=== PATIENT | male | born 1985 | race Caucasian/White ===

== ENCOUNTER 2020-03-21 10:41 | Outpatient (CLI) | payer BC, SELFPAY ==
[2020-03-21 11:19] LABS: Basophils Percent Auto 0.5 % (0.2-1.2); Eosinophils Absolute Auto 0.2 K/mm3 (0-0.3); Eosinophils Percent Auto 2.5 % (0-4.4); Hematocrit 43.8 % (42.0-52.0); Hemoglobin 14.7 g/dL (14.0-18.0); Immature Granulocyte Absolute 0.06 K/mm3 (0.00-0.031); Immature Granulocyte Percent A 0.8 % (0-0.5); Lymphocytes Absolute Auto 2.41 K/mm3 (0.9-3.2); Lymphocytes Percent Auto 32.1 % (18.3-44.2); Mean Corpuscular HGB Conc 33.6 g/dl (32-36); Mean Corpuscular Hemoglobin 29.6 pg (26-34); Mean Corpuscular Volume 88.3 fl (80-100); Monocytes Absolute Auto 0.6 K/mm3 (0.1-0.6); Monocytes Percent Auto 7.9 % (2.6-8.5); Neutrophils Absolute Auto 4.2 K/mm3 (1.3-6.7); Neutrophils Percent Auto 56.2 % (45.5-73.1); Platelet Count Result 304 k/mm3 (150-375); Red Blood Count 4.96 M/mm3 (4.6-6.20); Red Cell Distribution Width 12.5 % (11.5-14.5); White Blood Count 7.5 K/mm3 (4.5-10.0)
[2020-03-21 11:34] LABS: Alanine Aminotransferase 233 U/L (4-50); Albumin Level 4.6 g/dL (3.5-5.1); Alkaline Phosphatase 98 U/L (38-126); Anion Gap 8 mmol/L (8-16); Aspartate Amino Transferase 84 U/L (17-59); Bilirubin,Total 0.4 mg/dL (0.2-1.3); Blood Urea Nitrogen 13 mg/dL (9-20); Calcium 9.2 mg/dL (8.4-10.2); Carbon Dioxide 30 mmol/L (22-30); Chloride 102 mmol/L (98-107); Cholesterol 262 mg/dL (0-200); Estimated Glomerular Filt Rate > 60; Glucose 98 mg/dL (75-110); HDL Direct 48 mg/dL; Potassium 4.3 mmol/L (3.4-5.0); Sodium 140 mmol/L (137-145); Triglycerides 143 mg/dL (<150)
[2020-03-21 11:46] LABS: LDL Cholesterol Direct 170 mg/dL
== END 2020-03-21 10:42 | disposition home or self-care (01) ==
PROVIDERS: PCP Internal Medicine; Visit Provider Nurse Practitioner
DX: Z13.29 Encounter for screening for other suspected endocrine disorder (principal); Z13.220 Encounter for screening for lipoid disorders
CPT/HCPCS: 36415; 80053; 80061; 85025

== ENCOUNTER 2020-07-25 17:50 | Outpatient (CLI) | payer BC, SELFPAY | END 2020-07-25 17:51 | disposition home or self-care (01) | LOC: ANHCOVIDVC 17:50 | PROVIDERS: PCP Internal Medicine | DX: Z23 Encounter for immunization (principal) | CPT/HCPCS: 0001A; 91300 ==

== ENCOUNTER 2020-08-15 17:44 | Outpatient (CLI) | payer BC, SELFPAY | END 2020-08-15 17:45 | disposition home or self-care (01) | LOC: ANHCOVIDVC 17:44 | PROVIDERS: PCP Internal Medicine | DX: Z23 Encounter for immunization (principal) | CPT/HCPCS: 0002A; 91300 ==

== ENCOUNTER → 2020-09-26 06:34 | Outpatient (CLI) | payer BC, SELFPAY ==
[2020-09-26 17:04] LABS: SARS-CoV-2 RNA PCR Negative
== END ==
PROVIDERS: PCP Internal Medicine; Visit Provider Clinical Nurse Specialist
DX: Z20.822 Contact with and (suspected) exposure to COVID-19 (principal); R09.89 Other specified symptoms and signs involving the circulatory and respiratory systems
CPT/HCPCS: C9803; U0003; U0005

== ENCOUNTER 2020-10-27 17:18 | Emergency (ER) | payer BC, SELFPAY ==
--- NOTE | 2020-10-27 17:24 | ED.BACK ---
HPI - Back Pain/Injury General Chief Complaint: Back Pain/Injury Stated Complaint: lower right back pain Time Seen by Provider: 10/27/20 17:22 Source: patient and RN notes reviewed Mode of arrival: ambulatory History of Present Illness HPI Narrative: This is a 35-year-old male that presented to urgent care with complaints of constant lower back pain. Patient does have a history of L4-L5 fusion back in 2006. According to patient he woke up this morning and found it difficult to stand the patient requires a wheeled walker to perform ADLs in the home due to weakness/debility. The patient is not able to perform ADLs using a cane. Functional mobility deficit will be sufficiently resolved by using a walker. The patient is able to safely use the walker and agree to use the walker for treatment with the help of pain in his right lower back. Patient denies any trauma or lifting anything heavy. He notes on occasion he has a flareup and usually he can take ibuprofen in his symptoms are resolved. Patient notes this time ibuprofen did not relieve his low back pain. Patient denies any incontinence or urinary continence, weakness or falls. Patient straight leg test and slump test positive. Patient will need to follow-up with his primary care physician for further diagnostic test such as a CT MD elicited complaint: back pain Related Data Allergies Allergy/AdvReac Type Severity Reaction Status Date / Time No Known Allergies Allergy Verified 03/20/20 15:10 Review of Systems Review of Systems: Narrative: A 14 organ system Review of Systems was performed and pertinent positives included in the HPI, otherwise remaining ROS is negative. PMFSH Past Medical History Medical History Hyperlipidemia Transaminitis Surgical History Surgical History History of back surgery L4, L5 2006 Family History Family History Father Mixed hyperlipidemia Grandparent Malignant neoplasm of prostate Breast cancer Social History Social History Smoking status: Never smoker Alcohol intake: never Gender identity (if verbalized by the patient): Male Exam Narrative: Exam Narrative: GENERAL: This is a well-nourished, well-developed patient, in no apparent distress. HEAD: normocephalic, atraumatic. EYES: PERRL. Sclera clear/white. Vision is grossly intact. EARS: External ears normal, auditory canals clear and without drainage, TMs normal without perforation. Hearing grossly intact. NOSE: External nose normal with no obvious nasal discharge, nares without redness, no rhinorrhea. THROAT: Mucous membranes moist, posterior pharynx clear. NECK: Neck supple, non-tender without lymphadenopathy, masses or thyromegaly. CARDIOVASCULAR: Regular rate and rhythm without murmurs, gallops, or rubs. RESPIRATORY: Clear to auscultation. Breath sounds equal bilaterally. No wheezes, rales, or rhonchi. GASTROINTESTINAL: Abdomen soft, non-tender, nondistended. Bowel sounds are active. No hepato-splenomegaly, or palpable masses. No guarding. SKIN: warm, intact with no suspicious lesions or rash, good texture and turgor. NEURO: awake, alert, and oriented to person, place and time. There were no obvious focal neurologic abnormalities. Steady gait EXTREMITIES: Normal range of motion. No edema. No calf tenderness. Negative Homans sign bilaterally. BACK: Tenderness with palpation to the right lower side of his back, positive straight leg and slump test. Course Course Emergency Course: Patient received small amount of prednisone, Flexeril and [place]. He will need to follow-up with his primary care physician for further testing. Vital Signs Vital signs: Vital Signs Temperature 97.7 F 10/27/20 17:30 Pulse Rate 70 10/27/20 17:30 Respiratory Rate 18 10/27/20 1
[2020-10-27 17:30] VITALS: BP 142/82; PULSE 70; RESP 18; TEMP 36.5; O2SAT 99
== END 2020-10-27 17:41 | disposition home or self-care (01) ==
PROVIDERS: Emergency Provider Nurse Practitioner; PCP Internal Medicine
DX: M54.5 Low back pain (principal); E78.5 Hyperlipidemia, unspecified
CPT/HCPCS: 99213; G0463

== ENCOUNTER → 2020-12-25 02:35 | Outpatient (CLI) | payer BC, SELFPAY ==
[2020-12-26 15:33] LABS: SARS-CoV-2 RNA PCR Negative
== END ==
PROVIDERS: PCP Internal Medicine; Visit Provider Nurse Practitioner
DX: R68.89 Other general symptoms and signs (principal); Z20.822 Contact with and (suspected) exposure to COVID-19
CPT/HCPCS: C9803; U0003; U0005

== ENCOUNTER → 2021-08-28 10:52 | Outpatient (CLI) | payer BC, SELFPAY ==
--- NOTE | ~2021-08-28 | XR_ITS ---
EXAMINATION: XR foot RT 2V EXAM DATE: 08/28/2021 11:16 INDICATION: Localized swelling, mass and lump, right lower limb. TECHNIQUE: Frontal and lateral projections of the right foot. There is no prior study for compariso n. FINDINGS: There is acute closed posttraumatic nondisplaced fracture of the right 5th proximal phalan x in near-anatomic alignment. There is overlying soft tissue swelling. No other suspicious findings. IMPRESSION: Right 5th proximal phalangeal shaft fracture. Reviewed, dictated and finalized at location B.
== END ==
PROVIDERS: PCP Internal Medicine; Visit Provider Clinical Nurse Specialist
DX: S92.911A Unspecified fracture of right toe(s), initial encounter for closed fracture (principal); R22.41 Localized swelling, mass and lump, right lower limb
CPT/HCPCS: 73620

== ENCOUNTER → 2021-12-04 12:13 | Outpatient (CLI) | payer BC, SELFPAY ==
--- NOTE | ~2021-12-04 | XR_ITS ---
XR lumbar spine 2-3V DATE: 12/04/2021 12:44 INDICATION: Low back pain TECHNIQUE: AP, lateral, coned lateral lumbosacral views COMPARISON: None FINDINGS: Bilateral pedicle screws and Steffee plates There is minimal levoscoliosis of the lower thoracic and lumbar spine. No fracture or bone destructio n or spondylolisthesis. The lumbar pedicles appear intact. The sacroiliac joints appear normal. At L4 -5. IMPRESSION: Status post posterior surgical fusion at L4-5 Minimal levoscoliosis Reviewed, dictated and finalized at location B.
== END ==
PROVIDERS: PCP Internal Medicine; Visit Provider Clinical Nurse Specialist
DX: M54.50 Low back pain, unspecified (principal); Z98.1 Arthrodesis status
CPT/HCPCS: 72100

== ENCOUNTER → 2021-12-11 17:02 | Outpatient (CLI) | payer BC, SELFPAY ==
--- NOTE | ~2021-12-11 | MR_ITS ---
EXAMINATION: MR lumbar spine wo con DATE: 12/11/2021 17:36 INDICATION: Low back pain, after moving a couch 15 months ago. Lumbar surgery in 2006. TECHNIQUE: Magnetic resonance imaging (MRI) of the lumbar spine was performed without intravenous con trast. Sequences included sagittal T2-weighted FSE, sagittal T2-weighted FS FSE, sagittal T1-weighted FSE, and axial T2-weighted FSE. COMPARISON: X-ray lumbar spine 12/04/2021 FINDINGS: The last fully formed and hydrated disc is designated L5-S1. Posterior hardware fusion at L 4-5. Focal marrow edema in the anterior portions of the vertebral bodies at the T11-12 and T12-L1 dis c spaces, likely representing early Modic type I change. Conus terminates at L1-2. Loss of disc heigh t and hydration at L4-5 and L5-S1. The following disc levels are specifically discussed: T11-T12: The disc does not extend beyond the endplate margin. There is no facet joint osteoarthritis. There is no neural foraminal stenosis. There is no central canal stenosis. T12-L1: The disc does not extend beyond the endplate margin. There is no facet joint osteoarthritis. There is no neural foraminal stenosis. There is no central canal stenosis. L1-L2: Mild diffuse bulge. There is mild facet joint osteoarthritis. There is no neural foraminal chasity nosis. There is no central canal stenosis. L2-L3: Moderate diffuse bulge. There is mild facet joint osteoarthritis. There is mild bilateral neur al foraminal stenosis. There is mild central canal stenosis. L3-L4: Moderate diffuse bulge. There is moderate facet joint osteoarthritis. There is mild bilateral neural foraminal stenosis. There is mild central canal stenosis. L4-L5: Mild diffuse bulge. There is likely moderate facet joint osteoarthritis, evaluation impeded by adjacent hardware. There is mild right and moderate left neural foraminal stenosis. There is no cent ral canal stenosis. L5-S1: Mild diffuse bulge, with a 3 mm central protrusion and a posterior disc rent. There is moderat e facet joint osteoarthritis. There is moderate right and mild left neural foraminal stenosis. There is moderate central canal stenosis. IMPRESSION: 1. Focal Modic type I changes in the anterior portions of the vertebral bodies at the T11-12 and T12- L1 disc spaces. 2. Moderate degenerative disc disease at L5-S1, with a 3 mm broad-based central protrusion and a post erior disc rent. 3. Moderate central canal stenosis at L5-S1. 4. Multilevel moderate neural foraminal narrowing and facet arthropathy described above. Reviewed, dictated and finalized at location K. IMPRESSION: 1. Focal Modic type I changes in the anterior portions of the vertebral bodies at the T11-12 and T12-L1 disc spaces. 2. Moderate degenerative disc disease at L5-S1, with a 3 mm broad-based central protrusion and a posterior disc rent. 3. Moderate central canal stenosis at L5-S1. 4. Multilevel moderate neural foraminal narrowing and facet arthropathy describ ed above.
== END ==
PROVIDERS: PCP Internal Medicine; Visit Provider Clinical Nurse Specialist
DX: M51.37 Other intervertebral disc degeneration, lumbosacral region (principal)
CPT/HCPCS: 72148

== ENCOUNTER → 2022-01-03 07:52 | Outpatient (CLI) | payer BC, SELFPAY ==
--- NOTE | ~2022-01-03 | US_ITS ---
EXAMINATION: US right upper quadrant DATE: 01/03/2022 08:25 INDICATION: Right upper quadrant pain TECHNIQUE: Multiple grayscale and Doppler ultrasound images of the abdomen were obtained. COMPARISON: None available FINDINGS: The head, body, and tail of the pancreas are normal. The liver is normal with normal echoge nicity and echotexture. No surface nodularity. Normal hepatopetal flow in the main portal vein. A sto ne is present in the non-distended gallbladder. There is no pericholecystic fluid or gallbladder. The normal common bile duct measures 5 mm. There was no sonographic Javier sign. IMPRESSION: 1. Cholelithiasis without findings of cholecystitis. Reviewed, dictated and finalized at location A.
== END ==
PROVIDERS: PCP Internal Medicine; Visit Provider Clinical Nurse Specialist
DX: R74.01 Elevation of levels of liver transaminase levels (principal); K81.9 Cholecystitis, unspecified
CPT/HCPCS: 76705

== ENCOUNTER 2022-08-04 14:06 | Outpatient (CLI) | payer BC, SELFPAY ==
[2022-08-04 15:10] LABS: SARS-CoV-2 RNA PCR Negative
== END 2022-08-04 14:07 | disposition home or self-care (01) ==
LOC: ANHLAB 14:07
PROVIDERS: PCP Internal Medicine; Visit Provider Clinical Nurse Specialist
DX: R05.9 Cough, unspecified (principal); Z20.822 Contact with and (suspected) exposure to COVID-19
CPT/HCPCS: U0003; U0005

== ENCOUNTER → 2023-04-16 09:23 | Outpatient (CLI) | payer BC, SELFPAY ==
--- NOTE | ~2023-04-16 | XR_ITS ---
EXAMINATION: XR chest 2V DATE: 04/16/2023 09:32 INDICATION: Shortness of breath and cough. TECHNIQUE: Frontal and lateral views of the chest were obtained. COMPARISON: None. FINDINGS: There is no pneumonia, pleural effusion, or pneumothorax. The heart size is normal. IMPRESSION: 1. No acute cardiopulmonary disease. Reviewed, dictated and finalized at location A. [employer]
== END ==
PROVIDERS: PCP Nurse Practitioner; Visit Provider Nurse Practitioner
DX: R05.9 Cough, unspecified (principal); R06.02 Shortness of breath
CPT/HCPCS: 71046

== ENCOUNTER 2023-12-02 14:24 | Outpatient (CLI) | payer BC, SELFPAY ==
--- NOTE | ~2023-12-02 | US_ITS ---
EXAMINATION: US soft tissue lower back DATE: 12/02/2023 15:30 INDICATION: Soft tissue mass at the right lower back TECHNIQUE: Multiple grayscale and Doppler ultrasound images of the region of concern at the right low er back were obtained. COMPARISON: MRI dated 12/11/2021 FINDINGS: Normal appearance to the superficial and deeper subcutaneous fat at the region of concern which appea rs to overlie shadowing: The contour and reported location suggesting this represents the posterior i liac spine. No abnormal masses or fluid collections identified. IMPRESSION: 1. Normal study. No masses, fluid collections or other correlate identified for the reported palpable abnormality at the region of concern. Reviewed, dictated and finalized at location A.
== END 2023-12-02 14:25 ==
DX: M79.89 Other specified soft tissue disorders (principal)
CPT/HCPCS: 76705